=== PATIENT | female | born 1940 | race Caucasian/White ===

== ENCOUNTER 2022-04-11 13:46 | Emergency (ER) | payer MEDICARE, BC ==
[2022-04-11 16:51] LABS: CARBON DIOXIDE,CO2 26.3 mmol/L (21.0-32.0); POTASSIUM,K 3.6 mmol/L (3.5-5.1)
[2022-04-11] MEDS ORDERED: Iopamidol 755 Mg/ML 100 ML Bottle IVPUSH ONE (17:19)
[2022-04-11] MEDS ORDERED: Ampicillin/Sulbactam Na 3 GM in Sodium Chloride 0.9% 100 ML IV ONE (18:16)
== END 2022-04-11 19:45 | disposition home or self-care (01) ==
LOC: MW.ED 13:46
DX: K11.21 Acute sialoadenitis (principal); L03.211 Cellulitis of face; Z79.899 Other long term (current) drug therapy
CPT/HCPCS: 36415; 70487; 80053; 83605; 85025; 96365; 99284; J0295; Q9967

== ENCOUNTER 2022-04-12 10:06 | Inpatient (IN) | payer MEDICARE, BC ==
[2022-04-12] MEDS ORDERED: Sodium Chloride 0.9% 2.5 ML Syringe FLUSH PRN (11:02)
[2022-04-12] MEDS ORDERED: Sodium Chloride 0.9% 10 ML Syringe FLUSH PRN (11:02)
[2022-04-12] MEDS ORDERED: Ampicillin/Sulbactam Na 3 GM in Sodium Chloride 0.9% 100 ML IV ONE ×2 (11:41→14:00)
[2022-04-12] MEDS ORDERED: VANCOmycin 1.5 GM/300 ML 1.5 GM in Premix Bag 1 BAG IV ONE (12:00)
[2022-04-12 14:18] LABS: CARBON DIOXIDE,CO2 23.5 mmol/L (21.0-32.0); POTASSIUM,K 3.7 mmol/L (3.5-5.1)
[2022-04-12] MEDS ORDERED: Sodium Chloride 0.9% 500 ML IV SCH (15:30)
[2022-04-12] MEDS ORDERED: Ondansetron 4 MG/2 ML SDV IVPUSH PRN (16:05)
[2022-04-12] MEDS ORDERED: Polyethylene Glycol 3350 Powder 17 GM Packet PO PRN (16:05)
[2022-04-12] MEDS ORDERED: Albuterol/Ipratropium 3.0-0.5 MG/3 ML Neb Soln NEB PRN (16:05)
[2022-04-12] MEDS ORDERED: Acetaminophen 325 MG Tab PO PRN (16:05)
[2022-04-12] MEDS ORDERED: Morphine 2 MG/ML SYRINGE IVPUSH PRN (16:05)
[2022-04-12] MEDS ORDERED: Acetaminophen/oxyCODONE 325-5 MG Tab PO PRN (16:05)
[2022-04-12] MEDS: Pantoprazole 40 MG in Sodium Chloride 0.9% 10 ML IVPUSH SCH (20:12)
[2022-04-12] MEDS: Ampicillin/Sulbactam Na 3 GM in Sodium Chloride 0.9% 100 ML IV SCH (20:12)
[2022-04-12] MEDS ORDERED: Aluminum Hydroxide/Magnesium Hydroxide/Simethicone XS Susp 30 ML Cup PO PRN (23:04)
[2022-04-12] MEDS ORDERED: Melatonin 3 MG Tab PO PRN (23:04)
[2022-04-13] MEDS: Ampicillin/Sulbactam Na 3 GM in Sodium Chloride 0.9% 100 ML IV SCH ×4 (01:50→20:46)
[2022-04-13] MEDS: Levothyroxine 112 MCG Tab PO SCH (06:35)
[2022-04-13 07:04] LABS: CARBON DIOXIDE,CO2 25.5 mmol/L (21.0-32.0); POTASSIUM,K 3.2 mmol/L (3.5-5.1)
[2022-04-13] MEDS ORDERED: Potassium Chloride 20 MEQ Tab.ER PO ONE (08:15)
[2022-04-13] MEDS: Diltiazem 120 MG Cap.CD PO SCH (08:49)
[2022-04-13] MEDS: Anastrozole 1 MG Tab PO SCH (08:50)
[2022-04-13] MEDS: Pantoprazole 40 MG in Sodium Chloride 0.9% 10 ML IVPUSH SCH ×2 (08:52→20:45)
[2022-04-13] MEDS: VANCOmycin 1.5 GM/300 ML 1.5 GM in Premix Bag 1 BAG IV SCH (12:07)
[2022-04-13] MEDS: [UNRECOGNIZED DRUG - OTHER] PO SCH ×7 (13:38→23:45)
[2022-04-13] MEDS ORDERED: Sodium Chloride 0.9% 100 ML ONE (14:20)
[2022-04-13] MEDS: Rivaroxaban 10 MG Tab PO SCH (16:35)
[2022-04-13] MEDS: atorvaSTATin 10 MG Tab PO SCH (20:45)
[2022-04-14] MEDS: [UNRECOGNIZED DRUG - OTHER] PO SCH ×4 (01:07→14:21)
[2022-04-14] MEDS: Ampicillin/Sulbactam Na 3 GM in Sodium Chloride 0.9% 100 ML IV SCH ×4 (02:08→19:48)
[2022-04-14] MEDS: Levothyroxine 112 MCG Tab PO SCH (06:46)
[2022-04-14 07:18] LABS: CARBON DIOXIDE,CO2 25.5 mmol/L (21.0-32.0); POTASSIUM,K 3.5 mmol/L (3.5-5.1)
[2022-04-14] MEDS: Anastrozole 1 MG Tab PO SCH (10:00)
[2022-04-14] MEDS: Pantoprazole 40 MG in Sodium Chloride 0.9% 10 ML IVPUSH SCH ×2 (10:01→20:40)
[2022-04-14] MEDS: Diltiazem 120 MG Cap.CD PO SCH (10:03)
[2022-04-14] MEDS: VANCOmycin 1.5 GM/300 ML 1.5 GM in Premix Bag 1 BAG IV SCH (12:37)
[2022-04-14] MEDS: Rivaroxaban 10 MG Tab PO SCH (17:27)
[2022-04-14] MEDS: atorvaSTATin 10 MG Tab PO SCH (20:40)
[2022-04-15] MEDS: Ampicillin/Sulbactam Na 3 GM in Sodium Chloride 0.9% 100 ML IV SCH ×2 (01:58→08:28)
[2022-04-15] MEDS: Levothyroxine 112 MCG Tab PO SCH (06:38)
[2022-04-15 06:58] LABS: CARBON DIOXIDE,CO2 27.1 mmol/L (21.0-32.0); POTASSIUM,K 3.5 mmol/L (3.5-5.1)
[2022-04-15] MEDS: Diltiazem 120 MG Cap.CD PO SCH (08:28)
[2022-04-15] MEDS: Pantoprazole 40 MG in Sodium Chloride 0.9% 10 ML IVPUSH SCH (08:28)
[2022-04-15] MEDS: Anastrozole 1 MG Tab PO SCH (09:22)
== END 2022-04-15 12:45 | disposition home or self-care (01) | DRG 155 ==
LOC: MW.ED 10:06 → MW.MS 15:55
PROVIDERS: ADMIT Student in an Organized Health Care Education/Training Program; ATTEND Family Medicine
DX: K11.21 Acute sialoadenitis (principal); K11.20 Sialoadenitis, unspecified; L03.211 Cellulitis of face; Z79.01 Long term (current) use of anticoagulants; I48.0 Paroxysmal atrial fibrillation; I10 Essential (primary) hypertension; E78.5 Hyperlipidemia, unspecified; E03.9 Hypothyroidism, unspecified; Z66 Do not resuscitate; Z20.822 Contact with and (suspected) exposure to COVID-19; Z86.73 Personal history of transient ischemic attack (TIA), and cerebral infarction without residual deficits; Z79.890 Hormone replacement therapy; Z79.899 Other long term (current) drug therapy
CPT/HCPCS: 36415; 80053; 80202; 83605; 85025; 86140; 87040; 87641; 96365; 96366; 96368; 99284-25; A9270-GY; C9113; J0295; J3370; J3490; J7040; U0002